=== PATIENT | female | born 1985 | race Caucasian/White ===

== ENCOUNTER 2023-04-18 05:48 | Inpatient (IN) ==
[2023-04-18] MEDS ORDERED: Lactated Ringers 1000 ml BAG 1,000 ML IV ONE ×2 (07:26→15:01)
[2023-04-18] MEDS ORDERED: Buffered Lidocaine 1% SYRIN 1 ml INTRADERM ONE (07:26)
[2023-04-18] MEDS ORDERED: Lactated Ringers 1000 ml BAG 1,000 ML IV SCH ×2 (08:00→16:00)
[2023-04-18 08:38] LABS: ABS Lymphocytes 1.6 10^3/uL (1.0-4.8); ABS Monocytes 0.8 10^3/uL (0.0-0.9); ABS Neutrophils 11.2 10^3/uL (1.5-7.6); Eosinophil % 0.1 %; Hematocrit 37.3 % (35-45); Hemoglobin 12.5 g/dL (11.5-14.3); Mean Corpuscular Hemoglobin 29.8 pg (27-33); Mean Corpuscular Hgb Conc 33.6 g/dL (31-36); Mean Corpuscular Volume 88.5 fL (80-97); Mean Platelet Volume 10.7 fL (7.5-11.2); Platelet Count 114 10^3/uL (150-450); Red Blood Count 4.21 10^6/uL (3.63-4.92); Red Cell Distribution Width 14.6 % (12-17); White Blood Count 13.7 10^3/uL (3.8-11.8)
[2023-04-18 08:55] LABS: Calcium 9.4 mg/dL (8.6-10.3); Potassium 4.1 mmol/L (3.5-5.0); Total Bilirubin 0.5 mg/dL (0.2-1.0)
[2023-04-18 08:59] LABS: Urine Appearance Clear; Urine Bilirubin Negative (Negative); Urine Blood Negative (Negative); Urine Color Yellow; Urine Glucose Negative (Negative); Urine Ketones 1+ (Negative); Urine Nitrite Negative (Negative); Urine Protein Negative (Negative); Urine Urobilinogen Negative (Negative)
[2023-04-18 09:01] LABS: Albumin/Globulin Ratio 1.4 (1-3); Creatinine, Serum 0.52 mg/dL (0.51-0.95); Globulin 2.8 g/dL (2-4); Total Protein 6.8 g/dL (6.4-8.9); eGFR CKD-EPI 121.9 (>60)
[2023-04-18 09:11] LABS: Urine Benzodiazepine Screen None Detected (None Detect); Urine Cannabinoids Screen None Detected (None Detect); Urine Opiates Screen None Detected (None Detect)
[2023-04-18] MEDS ORDERED: Oxytocin in LR 20,000 MILLI.UNIT/1,000 ML BAG IV SCH (12:45)
[2023-04-18] MEDS ORDERED: OBEPIDURAL (200 ML) 200 ML EPIDURAL ONE (14:14)
[2023-04-18] MEDS ORDERED: Lidocaine 1% w EPI 1:200,000 SDV 30 ML VIAL ONE (14:15)
[2023-04-18] MEDS ORDERED: Phenylephrine 40 mcg/mL 10mL (400mcg) SYRINGE IV PUSH PRN ×2 (15:01)
[2023-04-18] MEDS ORDERED: Sodium Citrate/Citric Acid LIQ 15 ML UDC PO PRN (15:01)
[2023-04-18] MEDS ORDERED: OBEPIDURAL (200 ML) 200 ML EPIDURAL SCH (16:00)
[2023-04-19] MEDS ORDERED: Lidocaine 1% w EPI 1:200,000 SDV 10 ML VIAL ONE (02:18)
[2023-04-19] MEDS ORDERED: Lidocaine 1% w EPI 1:200,000 SDV 30 ML VIAL INJ ONE (03:29)
[2023-04-19 03:33] LABS: Hematocrit 29.8 % (35-45); Hemoglobin 10.3 g/dL (11.5-14.3); Mean Corpuscular Hemoglobin 30.6 pg (27-33); Mean Corpuscular Hgb Conc 34.4 g/dL (31-36); Mean Platelet Volume 10.3 fL (7.5-11.2); Platelet Count 103 10^3/uL (150-450); Red Blood Count 3.35 10^6/uL (3.63-4.92); Red Cell Distribution Width 14.5 % (12-17); White Blood Count 26.8 10^3/uL (3.8-11.8)
[2023-04-19] MEDS ORDERED: Glycerin ADULT 2.4 gm SUPP PR PRN (03:34)
[2023-04-19 04:00] LABS: ABS Basophils 0.1 10^3/uL (0.0-0.1); ABS Lymphocytes 0.8 10^3/uL (1.0-4.8); ABS Monocytes 2.1 10^3/uL (0.0-0.9); ABS Neutrophils 23.9 10^3/uL (1.5-7.6)
[2023-04-19] MEDS ORDERED: Lactated Ringers 1000 ml BAG 1,000 ML IV SCH (04:00)
[2023-04-19] MEDS ORDERED: Lidocaine 1% VIAL 10 MG/ML VIAL 30 ML ONE ×2 (04:58→06:37)
[2023-04-19] MEDS: Dibucaine 1% OINT 28.35 GM TUBE PR PRN (05:14)
[2023-04-19] MEDS: Witch Hazel PAD JAR TOPICAL PRN (05:14)
[2023-04-20 07:16] LABS: ABS Eosinophils 0.1 10^3/uL (0.0-0.5); ABS Lymphocytes 1.9 10^3/uL (1.0-4.8); ABS Monocytes 0.7 10^3/uL (0.0-0.9); ABS Neutrophils 8.2 10^3/uL (1.5-7.6); Eosinophil % 0.7 %; Hemoglobin 7.2 g/dL (11.5-14.3); Lymphocyte % 17.4 %; Mean Corpuscular Hemoglobin 30.7 pg (27-33); Mean Corpuscular Hgb Conc 34.3 g/dL (31-36); Mean Corpuscular Volume 89.5 fL (80-97); Red Blood Count 2.35 10^6/uL (3.63-4.92); Red Cell Distribution Width 14.6 % (12-17); White Blood Count 10.9 10^3/uL (3.8-11.8)
[2023-04-20 07:29] LABS: Platelet Count 82 10^3/uL (150-450)
[2023-04-20 18:44] LABS: Hematocrit 24.5 % (35-45); Hemoglobin 8.3 g/dL (11.5-14.3); Mean Corpuscular Hemoglobin 29.5 pg (27-33); Mean Corpuscular Hgb Conc 33.7 g/dL (31-36); Mean Corpuscular Volume 87.5 fL (80-97); Mean Platelet Volume 9.8 fL (7.5-11.2); Platelet Count 108 10^3/uL (150-450); Red Cell Distribution Width 15.4 % (12-17); White Blood Count 12.5 10^3/uL (3.8-11.8)
[2023-04-20] MEDS: Dibucaine 1% OINT 28.35 GM TUBE PR PRN (21:18)
[2023-04-20] MEDS: Witch Hazel PAD JAR TOPICAL PRN (21:19)
[2023-04-21 06:56] LABS: ABS Eosinophils 0.1 10^3/uL (0.0-0.5); ABS Lymphocytes 1.4 10^3/uL (1.0-4.8); ABS Monocytes 0.6 10^3/uL (0.0-0.9); ABS Neutrophils 7.8 10^3/uL (1.5-7.6); ABS Nucleated RBC 0.02 10^3/ul; Eosinophil % 0.5 %; Hematocrit 23.2 % (35-45); Lymphocyte % 14.4 %; Mean Corpuscular Hemoglobin 29.9 pg (27-33); Mean Corpuscular Hgb Conc 34.4 g/dL (31-36); Mean Corpuscular Volume 86.7 fL (80-97); Mean Platelet Volume 9.2 fL (7.5-11.2); Nucleated Red Blood Cells % 0.2 /100 WBC (0.0-0.4); Platelet Count 106 10^3/uL (150-450); Red Blood Count 2.68 10^6/uL (3.63-4.92); Red Cell Distribution Width 15.3 % (12-17); White Blood Count 9.9 10^3/uL (3.8-11.8)
[2023-04-21] MEDS: Witch Hazel PAD JAR TOPICAL PRN (14:05)
[2023-04-21] MEDS: Dibucaine 1% OINT 28.35 GM TUBE PR PRN (14:05)
[2023-04-21 19:53] LABS: ABS Eosinophils 0.1 10^3/uL (0.0-0.5); ABS Lymphocytes 1.6 10^3/uL (1.0-4.8); ABS Monocytes 0.7 10^3/uL (0.0-0.9); ABS Neutrophils 9.2 10^3/uL (1.5-7.6); Eosinophil % 0.7 %; Hemoglobin 9.5 g/dL (11.5-14.3); Lymphocyte % 13.7 %; Mean Corpuscular Hgb Conc 33.9 g/dL (31-36); Mean Corpuscular Volume 88.4 fL (80-97); Mean Platelet Volume 9.8 fL (7.5-11.2); Platelet Count 129 10^3/uL (150-450); Red Blood Count 3.16 10^6/uL (3.63-4.92); Red Cell Distribution Width 15.4 % (12-17); Urine Appearance Cloudy; Urine Bilirubin Negative (Negative); Urine Blood 3+ (Negative); Urine Color Straw; Urine Glucose Negative (Negative); Urine Ketones Negative (Negative); Urine Nitrite Negative (Negative); Urine Protein Negative (Negative); Urine Specific Gravity 1.003 (1.002-1.030); Urine Urobilinogen Negative (Negative); White Blood Count 11.6 10^3/uL (3.8-11.8)
[2023-04-21 19:56] LABS: Urine Bacteria 1+ (Absent); Urine Red Blood Cell 1+(3-5/hpf) (Absent); Urine Squamous Epithelial Cell Present (Absent); Urine White Blood Cell 2+(11-20/hpf) (Absent)
[2023-04-22 06:36] LABS: ABS Eosinophils 0.1 10^3/uL (0.0-0.5); ABS Lymphocytes 1.6 10^3/uL (1.0-4.8); ABS Monocytes 0.6 10^3/uL (0.0-0.9); ABS Neutrophils 6.5 10^3/uL (1.5-7.6); Hematocrit 27.5 % (35-45); Hemoglobin 9.5 g/dL (11.5-14.3); Lymphocyte % 17.9 %; Mean Corpuscular Hemoglobin 30.4 pg (27-33); Mean Corpuscular Hgb Conc 34.7 g/dL (31-36); Mean Corpuscular Volume 87.4 fL (80-97); Mean Platelet Volume 9.1 fL (7.5-11.2); Platelet Count 134 10^3/uL (150-450); Red Blood Count 3.14 10^6/uL (3.63-4.92); Red Cell Distribution Width 15.4 % (12-17); White Blood Count 8.7 10^3/uL (3.8-11.8)
[2023-04-22 08:14] VITALS: BP 131/85
[2023-04-22] MEDS: Witch Hazel PAD JAR TOPICAL PRN (18:34)
[2023-04-22] MEDS: Dibucaine 1% OINT 28.35 GM TUBE PR PRN (18:34)
== END 2023-04-22 19:30 | disposition home or self-care (01) | DRG 560 ==
LOC: MCHOBOUT 05:48 → MCHOB 07:31
PROVIDERS: ADMIT Advanced Practice Midwife; ATTEND Advanced Practice Midwife